=== PATIENT | male | born 1980 | race Caucasian/White ===

== ENCOUNTER 2020-06-06 12:17 | Emergency (ER) | payer MEDICAID ==
[~2020-06-06] VITALS: Ht 185.4 cm; Wt 100.0 kg
[~2020-06-06 12:17] MED LIST: IBUP-1573 PO; LIDOcaine 1% W/epiNEPHrine 1:200,000 10ml vial ONE; PEG15DRO5 OP; PETR3.5O7 OP; PRED20TA PO
[2020-06-06 12:20] VITALS: BP 139/100
== END 2020-06-06 14:51 | disposition home or self-care (01) ==
LOC: ER 12:17
DX: S61.211A Laceration without foreign body of left index finger without damage to nail, initial encounter (principal); I10 Essential (primary) hypertension; Z72.89 Other problems related to lifestyle; Z88.0 Allergy status to penicillin; Z88.5 Allergy status to narcotic agent; Z79.899 Other long term (current) drug therapy; X58.XXXA Exposure to other specified factors, initial encounter; Y93.89 Activity, other specified; Y92.89 Other specified places as the place of occurrence of the external cause; Y99.8 Other external cause status
CPT/HCPCS: 12002; 99282

== ENCOUNTER 2021-11-12 12:21 | Emergency (ER) | payer MEDICAID, OTHER ==
[~2021-11-12] VITALS: Ht 185.4 cm; Wt 98.6 kg
[~2021-11-12 12:21] MED LIST changes: -LIDOcaine 1% W/epiNEPHrine 1:200,000 10ml vial ONE
[2021-11-12 12:44] VITALS: BP 158/88
[2021-11-12] MEDS ORDERED: ORPH100T2 PO (14:57)
== END 2021-11-12 15:36 | disposition home or self-care (01) ==
LOC: ER 12:23
DX: M54.9 Dorsalgia, unspecified (principal); M25.551 Pain in right hip; R20.0 Anesthesia of skin; M79.651 Pain in right thigh; M54.50 Low back pain, unspecified; I10 Essential (primary) hypertension; Z72.89 Other problems related to lifestyle; Z88.0 Allergy status to penicillin; Z79.899 Other long term (current) drug therapy; Z88.8 Allergy status to other drugs, medicaments and biological substances; V89.2XXA Person injured in unspecified motor-vehicle accident, traffic, initial encounter; Y93.89 Activity, other specified; Y92.89 Other specified places as the place of occurrence of the external cause; Y99.8 Other external cause status
CPT/HCPCS: 72100; 99283

== ENCOUNTER 2021-11-29 16:13 | Emergency (ER) | payer SELFPAY ==
[~2021-11-29] VITALS: Ht 185.4 cm; Wt 99.5 kg
[~2021-11-29 16:13] MED LIST changes: +ORPH100T2 PO
[2021-11-29 16:31] VITALS: BP 137/89
[2021-11-29] MEDS ORDERED: ORPH100T2 PO (16:56)
--- NOTE | 2021-11-29 17:22 | NUR ---
PATIENT WAS SEEN PER PROVIDER, VANCE, AND SUGGESTED TO HAVE LOCAL ANESTHETIC INJECTION. PATIENT SAYS HE "WANTS TO THINK ABOUT IT" BECAUSE "HE IS SCARED OF NEEDLES" AND WANTED TO TALK TO HIS DAUGHTER ABOUT IT BEFORE DECIDING. PRESENT AT THE BEDSIDE WITH PATIENT.
[2021-11-29] MEDS ORDERED: triamcinolone acetonide 40mg/ml inj IM ONE (17:25)
--- NOTE | 2021-11-29 17:50 | NUR ---
PATIENT RECEIVED KENALOG SHOT WITH NO COMPLANITS. TOLERATED PROCEDURE WELL.
== END 2021-11-29 17:54 | disposition home or self-care (01) ==
LOC: ER 16:14
DX: M62.838 Other muscle spasm (principal); M25.511 Pain in right shoulder; I10 Essential (primary) hypertension; Z72.89 Other problems related to lifestyle; Z88.0 Allergy status to penicillin; Z88.5 Allergy status to narcotic agent; Z88.8 Allergy status to other drugs, medicaments and biological substances; Z79.899 Other long term (current) drug therapy
CPT/HCPCS: 20552; 96372; 99284

== ENCOUNTER 2024-10-20 07:00 | Outpatient (CLI) | payer MEDICAID ==
[~2024-10-20 07:00] MED LIST changes: -ORPH100T2 PO; +ORPH100T4 PO
== END 2024-10-20 23:59 | disposition home or self-care (01) ==
LOC: MRI02 07:00
PROVIDERS: ATTEND Nurse Practitioner Adult Health
DX: M25.552 Pain in left hip (principal); M54.59 Other low back pain; M47.816 Spondylosis without myelopathy or radiculopathy, lumbar region; M79.18 Myalgia, other site; M79.605 Pain in left leg; M54.2 Cervicalgia; M47.812 Spondylosis without myelopathy or radiculopathy, cervical region; Z72.0 Tobacco use; M40.04 Postural kyphosis, thoracic region
CPT/HCPCS: 72148; 72195

== ENCOUNTER 2024-11-04 06:01 | Outpatient (CLI) | payer MEDICAID | END 2024-11-04 23:59 | disposition home or self-care (01) | LOC: MRI02 06:01 | PROVIDERS: ATTEND Physician Assistant Surgical | DX: S83.242A Other tear of medial meniscus, current injury, left knee, initial encounter (principal); S83.222A Peripheral tear of medial meniscus, current injury, left knee, initial encounter; M25.562 Pain in left knee; X58.XXXA Exposure to other specified factors, initial encounter; S83.412A Sprain of medial collateral ligament of left knee, initial encounter; M25.462 Effusion, left knee; Y93.89 Activity, other specified; Y92.89 Other specified places as the place of occurrence of the external cause; Y99.8 Other external cause status; M25.862 Other specified joint disorders, left knee | CPT/HCPCS: 73721 ==

== ENCOUNTER 2024-12-23 16:07 | Outpatient (CLI) | payer MEDICAID ==
--- NOTE | 2024-12-23 19:38 | RADIOLOGY REPORT ---
Procedure: MR MRI LOWER EXTREMITY RIGHT 12/23/2024 04:38 PM Indication: PAIN IN RIGHT ANKLE AND JOINTS OF RIGHT FOOT COMPARISON: MR MRI LOWER EXTREMITY LEFT on DOS: 11/04/24 TECHNIQUE: Multisequence multiplanar imaging was performed. FINDINGS: Extensor tendons: Unremarkable. Flexor tendons: Mild fluid distention of the tendon sheaths noted. The tendons are normal in morphol ogy and signal without significant tendinosis or tendon tear Peroneal tendons: Unremarkable. Syndesmotic ligaments: Chronic anterior tibiotalar ligament tear with adjacent subcentimeter chronic avulsion fracture fragment noted. The posterior tibiotalar ligament is intact. Medial stabilizer ligaments: Unremarkable. Lateral stabilizer complex: The anterior talofibular ligament is not identified reflecting chronic te ar. Sinus Tarsi: Unremarkable. Tarsal tunnel: Unremarkable. Achilles tendon: Unremarkable. Plantar fascia: Unremarkable. Bones/Joints: Small plantar calcaneal spur is seen. No acute osseous abnormality. The ankle mortise and syndesmotic spaces are maintained. The talar dome is intact. Other: Moderate medial malleolus subcutaneous edema. IMPRESSION: 1. Moderate medial malleolar subcutaneous edema. 2. Flexor tenosynovitis involving flexor hallucis longus, flexor digitorum and posterior tibialis ten dons without evidence of tendinosis or tendon tear. 3. 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
== END 2024-12-23 23:59 | disposition home or self-care (01) ==
LOC: MRI02 16:07
PROVIDERS: ATTEND Podiatrist Foot & Ankle Surgery
DX: S93.491A Sprain of other ligament of right ankle, initial encounter (principal); M79.671 Pain in right foot; M25.571 Pain in right ankle and joints of right foot; X58.XXXA Exposure to other specified factors, initial encounter; Y93.89 Activity, other specified; Y92.89 Other specified places as the place of occurrence of the external cause; M65.871 Other synovitis and tenosynovitis, right ankle and foot; Y99.8 Other external cause status; M77.31 Calcaneal spur, right foot
CPT/HCPCS: 73721